=== PATIENT | male | born 1975 | race Caucasian/White ===

== ENCOUNTER 2020-10-29 09:30 | Emergency (ER) | payer OTHER ==
[~2020-10-29] VITALS: Ht 188 cm; Wt 136.1 kg
[~2020-10-29 09:30] MED LIST: MEDROLDOSEPACK PO; PREDNISONE 10 M10 MG PO; PROAIR RESPICL90 MCG IH; ZPAK PO
[2020-10-29 11:17] VITALS: BP 122/72
== END 2020-10-29 11:18 | disposition home or self-care (01) ==
LOC: M.ERS 09:30
DX: Z20.822 Contact with and (suspected) exposure to COVID-19 (principal); Z90.49 Acquired absence of other specified parts of digestive tract